=== PATIENT | male | born 1935 | race Caucasian/White ===

== ENCOUNTER → 2021-07-16 08:45 | Outpatient (CLI) | payer MEDICARE, SELFPAY ==
[2021-07-16 09:33] LABS: Basophils # 0.1 K/mm3 (0-0.2); Basophils % 0.8 % (0.1-2.0); Eosinophils # 0.4 K/mm3 (0.0-0.4); Eosinophils % 5.5 % (0.1-12.0); Hematocrit 47.5 % (42.0-52.0); Hemoglobin 15.7 g/dL (14.1-18.0); Lymphocytes # 1.9 K/mm3 (0.7-4.5); Lymphocytes % 28.6 % (10-50); Mean Corpuscular HGB Conc 33.1 g/dL (31.8-35.4); Mean Corpuscular Hemoglobin 32.7 pg (27.0-31.2); Mean Corpuscular Volume 98.9 fl (80-94); Mean Platelet Volume 7.7 fl (7.4-10.4); Monocytes # 0.4 K/mm3 (0.1-1.0); Monocytes % 5.2 % (1.7-9.3); Neutrophils # 4.1 K/mm3 (1.8-7.8); Neutrophils % 59.9 % (37.0-80.0); Platelet Count 299 K/mm3 (142-424); White Blood Count 6.8 K/mm3 (4.8-10.8)
[2021-07-16 10:06] LABS: Alanine Aminotransferase 12 U/L (12-78); Albumin/Globulin Ratio 1.7 (1.1-1.8); Alkaline Phosphatase 52 U/L (38-126); Anion Gap 9.9 mEq/L (5-15); Aspartate Amino Transferase 28 U/L (17-59); Blood Urea Nitrogen 19 mg/dl (9-20); Calcium 9.4 mg/dl (8.4-10.2); Carbon Dioxide 32 mmol/L (22.0-30.0); Chloride 105 mmol/L (98-107); Chol/HDL Ratio 2.8 (1-3.5); Cholesterol 168 mg/dl (140-200); Estimated Glomerular Filt Rate 71 ml/min (>60); GFR (African American) 86 ML/MIN (>60); Globulin 2.3 g/dL (1.3-3.2); Glucose 92 mg/dl (74-100); HDL Cholesterol 61 mg/dl (40-60); Potassium 4.9 mmoL/L (3.5-5.1); Sodium 142 mmol/L (136-145); Total Protein,Serum 6.3 g/dl (6.3-8.2); Triglycerides 58 mg/dl (30-150); VLDL Cholesterol 12 mg/dL (0-40)
[2021-07-16 10:18] LABS: Direct LDL Cholesterol 84.48 mg/dL (100-129)
[2021-07-16 10:37] LABS: Prostate Specific Ag Screen 6.7 ng/ml (0.0-4.0)
== END ==
PROVIDERS: Visit Provider Internal Medicine
DX: Z00.00 Encounter for general adult medical examination without abnormal findings (principal); Z12.5 Encounter for screening for malignant neoplasm of prostate; E78.9 Disorder of lipoprotein metabolism, unspecified
CPT/HCPCS: 36415; 80053; 80061; 85025; G0103

== ENCOUNTER → 2022-07-21 08:14 | Outpatient (CLI) | payer MEDICARE, SELFPAY ==
[2022-07-21 09:50] LABS: Basophils # 0.1 K/mm3 (0-0.2); Eosinophils # 0.3 K/mm3 (0.0-0.4); Eosinophils % 4.5 % (0.1-12.0); Hematocrit 46.2 % (42.0-52.0); Hemoglobin 14.8 g/dL (14.1-18.0); Lymphocytes # 1.4 K/mm3 (0.7-4.5); Lymphocytes % 26.1 % (10-50); Mean Corpuscular HGB Conc 32.1 g/dL (31.8-35.4); Mean Corpuscular Volume 99.7 fl (80-94); Monocytes # 0.3 K/mm3 (0.1-1.0); Monocytes % 5.8 % (1.7-9.3); Neutrophils # 3.4 K/mm3 (1.8-7.8); Neutrophils % 62.6 % (37.0-80.0); Platelet Count 282 K/mm3 (142-424); Red Blood Count 4.63 M/mm3 (4.60-6.20); White Blood Count 5.5 K/mm3 (4.8-10.8)
[2022-07-21 10:14] LABS: Chloride 104 mmol/L (98-107); Potassium 4.4 mmoL/L (3.5-5.1); Sodium 140 mmol/L (136-145)
[2022-07-21 10:16] LABS: Blood Urea Nitrogen 22 mg/dl (9-20); Estimated Glomerular Filt Rate 71 ml/min (>60); GFR (African American) 86 ML/MIN (>60)
[2022-07-21 10:17] LABS: Alanine Aminotransferase 13 U/L (12-78); Albumin Level 3.8 g/dl (3.5-5.0); Albumin/Globulin Ratio 1.7 (1.1-1.8); Alkaline Phosphatase 61 U/L (38-126); Anion Gap 11.4 mEq/L (5-15); Aspartate Amino Transferase 28 U/L (17-59); Bilirubin,Total 0.9 mg/dl (0.2-1.3); Calcium 9.4 mg/dl (8.4-10.2); Carbon Dioxide 29 mmol/L (22.0-30.0); Cholesterol 171 mg/dl (140-200); Globulin 2.3 g/dL (1.3-3.2); Glucose 89 mg/dl (74-100); Total Protein,Serum 6.1 g/dl (6.3-8.2); Triglycerides 50 mg/dl (30-150); VLDL Cholesterol 10 mg/dL (0-40)
[2022-07-21 10:18] LABS: Chol/HDL Ratio 2.9 (1-3.5); HDL Cholesterol 58 mg/dl (40-60)
[2022-07-21 10:29] LABS: Direct LDL Cholesterol 76.01 mg/dL (100-129)
== END ==
PROVIDERS: PCP Internal Medicine; Visit Provider Internal Medicine
DX: Z00.00 Encounter for general adult medical examination without abnormal findings (principal); Z85.46 Personal history of malignant neoplasm of prostate; I10 Essential (primary) hypertension; Z12.5 Encounter for screening for malignant neoplasm of prostate
CPT/HCPCS: 36415; 80053; 80061; 85025; G0103

== ENCOUNTER → 2023-07-26 09:57 | Outpatient (CLI) | payer MEDICARE, SELFPAY ==
[2023-07-26 10:28] LABS: Basophils # 0.1 K/mm3 (0-0.2); Basophils % 0.8 % (0.1-2.0); Eosinophils # 0.3 K/mm3 (0.0-0.4); Eosinophils % 5.1 % (0.1-12.0); Hematocrit 45.1 % (42.0-52.0); Hemoglobin 15.4 g/dL (14.1-18.0); Lymphocytes # 1.9 K/mm3 (0.7-4.5); Mean Corpuscular HGB Conc 34.1 g/dL (31.8-35.4); Mean Corpuscular Hemoglobin 33.5 pg (27.0-31.2); Mean Corpuscular Volume 98.2 fl (80-94); Mean Platelet Volume 7.5 fl (7.4-10.4); Monocytes # 0.4 K/mm3 (0.1-1.0); Monocytes % 5.9 % (1.7-9.3); Neutrophils # 3.8 K/mm3 (1.8-7.8); Neutrophils % 59.2 % (37.0-80.0); Platelet Count 221 K/mm3 (142-424); Red Blood Count 4.59 M/mm3 (4.60-6.20); Red Cell Distribution Width 12.9 % (11.5-17.5); White Blood Count 6.5 K/mm3 (4.8-10.8)
[2023-07-26 10:52] LABS: Alanine Aminotransferase 19 U/L (12-78); Albumin Level 3.9 g/dl (3.5-5.0); Albumin/Globulin Ratio 1.7 (1.1-1.8); Alkaline Phosphatase 52 U/L (38-126); Anion Gap 11.7 mEq/L (5-15); Aspartate Amino Transferase 31 U/L (17-59); Bilirubin,Total 0.9 mg/dl (0.2-1.3); Blood Urea Nitrogen 23 mg/dl (9-20); Calcium 9.1 mg/dl (8.4-10.2); Carbon Dioxide 27 mmol/L (22.0-30.0); Chloride 104 mmol/L (98-107); Chol/HDL Ratio 2.5 (1-3.5); Cholesterol 161 mg/dl (140-200); Estimated Glomerular Filt Rate 63 ml/min (>60); GFR (African American) 77 ML/MIN (>60); Globulin 2.3 g/dL (1.3-3.2); Glucose 105 mg/dl (74-100); HDL Cholesterol 64 mg/dl (40-60); Potassium 4.7 mmoL/L (3.5-5.1); Sodium 138 mmol/L (136-145); Total Protein,Serum 6.2 g/dl (6.3-8.2); Triglycerides 81 mg/dl (30-150); VLDL Cholesterol 16 mg/dL (0-40)
[2023-07-26 11:03] LABS: Direct LDL Cholesterol 74.95 mg/dL (100-129)
[2023-07-26 11:22] LABS: Prostate Specific Ag Screen 8.1 ng/ml (0.0-4.0); Thyroid Stimulating Hormone 1.98 uIU/mL (0.465-4.68)
== END ==
PROVIDERS: PCP Internal Medicine; Visit Provider Internal Medicine
DX: Z00.00 Encounter for general adult medical examination without abnormal findings; Z85.46 Personal history of malignant neoplasm of prostate; Z12.5 Encounter for screening for malignant neoplasm of prostate; R73.9 Hyperglycemia, unspecified; R71.8 Other abnormality of red blood cells; I10 Essential (primary) hypertension
CPT/HCPCS: 36415; 80053; 80061; 84443; 85025; G0103

== ENCOUNTER 2024-07-26 08:45 | Outpatient (CLI) | payer MEDICARE, SELFPAY ==
[2024-07-26 09:15] LABS: Basophils # 0.1 K/mm3 (0-0.2); Eosinophils # 0.3 K/mm3 (0.0-0.4); Eosinophils % 4.1 % (0.1-12.0); Hematocrit 44.2 % (42.0-52.0); Hemoglobin 15.4 g/dL (14.1-18.0); Lymphocytes # 1.9 K/mm3 (0.7-4.5); Lymphocytes % 31.4 % (10-50); Mean Corpuscular HGB Conc 34.9 g/dL (31.8-35.4); Mean Corpuscular Hemoglobin 33.1 pg (27.0-31.2); Mean Corpuscular Volume 94.7 fl (80-94); Mean Platelet Volume 7.4 fl (7.4-10.4); Monocytes # 0.4 K/mm3 (0.1-1.0); Monocytes % 6.6 % (1.7-9.3); Neutrophils # 3.5 K/mm3 (1.8-7.8); Neutrophils % 56.9 % (37.0-80.0); Platelet Count 228 K/mm3 (142-424); Red Blood Count 4.67 M/mm3 (4.60-6.20); Red Cell Distribution Width 13.1 % (11.5-17.5); White Blood Count 6.1 K/mm3 (4.8-10.8)
[2024-07-26 10:03] LABS: Alanine Aminotransferase 12 U/L (12-78); Albumin Level 3.7 g/dl (3.5-5.0); Albumin/Globulin Ratio 1.7 (1.1-1.8); Alkaline Phosphatase 52 U/L (38-126); Aspartate Amino Transferase 26 U/L (17-59); Bilirubin,Total 0.9 mg/dl (0.2-1.3); Blood Urea Nitrogen 24 mg/dl (9-20); Calcium 8.9 mg/dl (8.4-10.2); Carbon Dioxide 29 mmol/L (22.0-30.0); Chloride 108 mmol/L (98-107); Chol/HDL Ratio 2.9 (1-3.5); Cholesterol 153 mg/dl (140-200); Estimated Glomerular Filt Rate 63 ml/min (>60); GFR (African American) 77 ML/MIN (>60); Globulin 2.2 g/dL (1.3-3.2); Glucose 88 mg/dl (74-100); HDL Cholesterol 53 mg/dl (40-60); Potassium 4.1 mmoL/L (3.5-5.1); Total Protein,Serum 5.9 g/dl (6.3-8.2); Triglycerides 79 mg/dl (30-150); VLDL Cholesterol 16 mg/dL (0-40)
[2024-07-26 10:04] LABS: Anion Gap 9.1 mEq/L (5-15); Sodium 142 mmol/L (136-145)
[2024-07-26 10:16] LABS: Direct LDL Cholesterol 75.02 mg/dL (100-129)
[2024-07-26 10:21] LABS: Free T4 (Free Thyroxine) 0.93 ng/dl (0.78-2.19)
[2024-07-26 10:38] LABS: Prostate Specific Ag, Diagnost 16.7 ng/ml (0.0-4.0); Thyroid Stimulating Hormone 2.19 uIU/mL (0.465-4.68)
== END 2024-07-26 23:59 | disposition home or self-care (01) ==
LOC: LAB 08:47
PROVIDERS: PCP Internal Medicine; Visit Provider Internal Medicine
DX: C61 Malignant neoplasm of prostate (principal); I10 Essential (primary) hypertension
CPT/HCPCS: 36415; 80053; 80061; 84153; 84439; 84443; 85025

== ENCOUNTER 2025-02-26 09:51 | Outpatient (CLI) | payer MEDICARE, SELFPAY ==
--- OUTSIDE RECORDS SUMMARY | 2025-01-08 13:15 | XMS_ITS | Encounter Summary ---
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 Name Role Phone Unavailable Primary Care Provider Unavailabl e Reason for Visit * Reason Comments Injections Repeat inj Encounter Details Date Type Department Care Team (Late st Contact Info) Description 01/08/2025 1:15 PM EDT Office Visit [facility] - [address] [place] [address] Trudi Mustafa MD [address] [place] [address] Carpal tunnel syndrome on right (Primary Dx); Right hand pain Social History Tobacco Use Types Packs/Day Years Used Date Smoking Tobacco: Never Smokeless Tobacco: Never Tobacco Cessation:Counseling Given: Not Answered Alcohol Use Standard Drinks/Week Comments Never 0 (1 standard drink = 0.6 oz pur e alcohol) Sex and Gender Information Value Date Recorded Sex Assigned at Not on file Legal Sex Male 1:20 PM CDT Gender Identity Not on file Sexual Orientation Not on file documented as of this encounter Last Filed Vital Signs Vital Sign Reading Time Taken Comments Blood Pressure 153/74 01/08/2025 1:13 PM EDT Pulse 51 01/08/2025 1:13 PM EDT Temperature - - Respiratory Rate - - Oxygen Saturation - - Inhaled Oxygen Concentration - - Weight 75.8 kg (167 lb) 01/08/2025 1:08 PM EDT Height 170.2 cm (5' 7 ) 01/08/2025 1:08 PM EDT Body Mass Index 26.16 01/08/2025 1:08 PM EDT documented in this encounter Progress Notes * Trudi Mustafa MD - 01/08/2025 1:15 PM EDTAssociated Order(s): R CTI Post-Procedure Diagnose(s): Carpal tunnel syndrome on right Subjective: Edvin Valladares is a 89 y.o. male. No ref. provider found Work Comp []Yes [x]No Chief Complaint Patient presents with Injections Repeat inj Last visit 10/10/24 received R CTI He had good relief from the past inj and only has slight numbness in the tip of his fingers. 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 Date of Onset of Symptoms: [x]On-going problem Trauma: []+ [x]- Mechanism of Injury: n/a Pain Location: right hand Severity (1-10) Quality: Burning Numbness: []+ [x]- []Occasional []Constant Tingling: []+ [x]- []Occasional []Constant Night Symptoms: []+ [x]- x/wk Additional Symptoms: []None []Drainage []Neck Pain []Redness []Swelling [x]Stiffness []Bruising []Weakness []Drop Items []Other: Review of Systems []No change from previous []Change from previous [x]Reviewed ROS by Trudi Mustafa MD General: No recent fever or chills, no recent weight loss or weight gain, no insomnia HEENT: No change in vision, no glasses/contacts, no hearing loss, no tinnitus, no vertigo, no congestion/sinus issues CVS: No chest pain, no palpitations, no edema, no varicose veins Resp: No dyspnea, no wheezing, no cough, no hemoptysis GI: No dysphagia, no nausea, no vomiting, no heart burn, no constipation, no diarrhea : No dysuria, no hematuria, no nocturia, no history of chronic UTI Musculoskeletal: See HPI Derm: No rash, no abrasions, no skin discoloration, no history or MRSA Neuro: No headaches, no seizures, no stroke, no tremors, no muscle weakness, no difficulty walking,no numbness/tingling, no neuropathy Endo: No cold/heat intolerance Heme: No abnormal bruising or bleeding Psych: No depression, no anxiety, no fatigue, no mood swings Vitals: 01/08/25 1308 01/08/25 1313 BP: (!) 145/88 (!) 153/74 Pulse: 56 51 Weight: 75.8 kg (167 lb) Height: 1.702 m (5' 7 ) Past Medical History: Diagnosis Date Arthritis Past Surgical History: Procedure Laterality Date APPENDECTOMY BACK SURGERY HAND SURGERY No current outpatient medications on file. No current facility-administered medications for this visit. No Known Allergies Family History Problem Relation Name Age of Onset High blood pressure Other Diabetes Other Cancer Other Arthritis Other Hyperlipidemia Other Social History Tobacco Use Smoking status: Never Smokeless tobacco: Never Substance Use Topics Alcohol use: Never Objective: BP (!) 153/74 Pulse 51 Ht 1.702 m (5' 7 ) Wt 75.8 kg (167 lb) BMI 26.16 kg/m?? Physical Exam Physical Examination: General: [x]Awake, Alert, Oriented [x]Ambulatory [x]No Acute Distress [x]Mucus Membranes pink, moist [x]Pupils equal [x]Respiratory even, unlabored Skin: [x]Warm and dry with good cap refill [] []+ [x]- []+ [x]- []+ [x]- []+ [x]- Dystrophic changes Hypersweating Hypertrichosis Discoloration Wound/Incision: []+ []- Location: [] Healed []NSOI []C/D/I []Ecchymosis []Erythema []Swelling Peripheral Vessels: Palpable pulses: ~[x]~ Radial Artery ~[x]~ Ulnar Artery ~[x]~ Good Capillary Refill 's Test /____ R/L /____ Tinels Compression Right Left Right Left Carpel Tunnel [x]+ []- []+ []- Carpal T [x]+ []- []+ []- Pronator []+ []- []+ []- Phalen's [x]+ []- []+ []- Cubital Tunnel []+ [x]- []+ []- Pronator T []+ []- []+ []- Guyon's Canal []+ [x]- []+ []- Elbow Hyperflex []+ []- []+ []- Infraclavicular []+ []- []+ []- Infraclavicular []+ []- []+ []- Supraclavicular []+ []- []+ []- Supraclavicular []+ []- []+ []- EMG/NCS: No results found for this or any previous visit. Imaging Treatment: R CTI Date/Time: 01/08/2025 1:29 PM Performed by: Trudi Mustafa MD Authorized by: Trudi Mustafa MD Consent: Consent obtained: Verbal and written Consent given by: Patient Risks, benefits, and alternatives were discussed: yes Risks discussed: Bleeding, infection, pain, incomplete drainage, nerve damage and poor cosmetic result [place] protocol: Procedure explained and questions answered to patient or proxy's satisfaction: yes Relevant documents present and verified: yes Test results available: yes Imaging studies available: yes Site/side marked: yes Immediately prior to procedure, a time out was called: yes Patient identity confirmed: Verbally with patient Indications: Indications: Carpal Tunnel Syndrome Pre-procedure details: Preparation: Patient was prepped and draped in the usual sterile fashion Sedation: Sedation type: None Anesthesia: Anesthesia method: Topical application Procedure specific details: Right Carpal Tunnel injections We discussed conservative treatment with Kenalog injections which can take several days for effect.Transient numbness in the hand was discussed post injection which will resolve in a few hours. The hand was laid in the supine position. 1 ml of 1% Lidocaine and Kenalog 10mg were injected ulnar to the palmaris longus tendon (in the soft indentation of the volar wrist) after the skin was prepped with adequately with alcohol. A sterile bandaid was applied. Post-procedure details: Procedure completion: Tolerated well, no immediate complications Assessment: ICD-10-CM ICD-9-CM 1. Carpal tunnel syndrome on right G56.01 354.0 2. Right hand pain M79.641 729.5 Plan: Discussed treatment options for Carpal Tunnel Syndrome, including braces, injections and carpal tunnel release. The patient education brochure on carpal tunnel syndrome has been provided to the patient. continue night splints (patient has purchased OTC) B6/E Vitamins If symptoms persist without benefit from injection after 2 weeks, we will obtain emg/ncs study. We discussed our intent to continue with conservative management as long as the injections provide appropriate relief of symptoms or until surgery is elected by the patient. Patient instructions given. I have examined and questioned the above listed patient and provided or received all documentation,establishing, confirming, and revising as necessary, the findings and statements noted. . EMR/Dragon/Integration Technician disclaimer: Much of this encounter note is an electronic clinical account executive/translation of spoken language to printed text. The electronic translation of spoken language may permit erroneous, or at times, nonsensical words or phrases to be inadvertently transcribed; Although thenote is reviewed for such errors, some may still exist. documented in this encounter Plan of Treatment Upcoming Encounters Date Type Department Care Team (Late st Contact Info) Description 04/09/2025 1:00 PM EDT Office Visit [facility] - [address] [place] [id number] Trudi Mustafa MD [address] [place] [address] documented as of this encounter Procedures Procedure Name Priority Date/Time Associated Diagnosis Comments [id number]_MODEL GENERAL FORM Routine 01/08/2025 1:29 PM EDT Carpal tunnel syndrome on right documented in this encounter Results * R CTI (01/08/2025 1:29 PM EDT) Narrative Trudi Mustafa MD - 01/08/2025 1:29 PM EDT Trudi Mustafa MD 01/08/2025 1:33 PM R CTI Date/Time: 01/08/2025 1:29 PM Performed by: Trudi Mustafa MD Authorized by: Trudi Mustafa MD Consent: Consent obtained: Verbal and written Consent given by: Patient Risks, benefits, and alternatives were discussed: yes Risks discussed: Bleeding, infection, pain, incomplete drainage, nerve damage and poor cosmetic result [place] protocol: Procedure explained and questions answered to patient or proxy's satisfaction: yes Relevant documents present and verified: yes Test results available: yes Imaging studies available: yes Site/side marked: yes Immediately prior to procedure, a time out was called: yes Patient identity confirmed: Verbally with patient Indications: Indications: Carpal Tunnel Syndrome Pre-procedure details: Preparation: Patient was prepped and draped in the usual sterile fashion Sedation: Sedation type: None Anesthesia: Anesthesia method: Topical application Procedure specific details: Right Carpal Tunnel injections We discussed conservative treatment with Kenalog injections which can take several days for effect. Transient numbness in the hand was discussed post injection which will resolve in a few hours. The hand was laid in the supine position. 1 ml of 1% Lidocaine and Kenalog 10mg were injected ulnar to the palmaris longus tendon (in the soft indentation of the volar wrist) after the skin was prepped with adequately with alcohol. A sterile bandaid was applied. Post-procedure details: Procedure completion: Tolerated well, no immediate complications Trudi Mustafa MD PROCEDURE/MINOR SURGICAL ORDERABLES Final Result documented in this encounter Visit Diagnoses Diagnosis Carpal tunnel syndrome on right- Primary Carpal tunnel syndrome Right hand pain Pain in soft tissues of limb documented in this encounter Administered Medications Inactive Administered Medications - up to 3 most recent administrations Medication Order MAR Action Action Date Dose Rate Site lidocaine (XYLOCAINE) injection 1% 1 mL Once, intra-articular, On Mon01/08/25 at 1400, For 1 doseIndications:Carpal tunnel syndrome on right Given 01/08/2025 1:18 PM EDT 1 mL Other triamcinolone acetonide (KENALOG) injection 1 mg 1 mg Once, intra-articular, On Mon01/08/25 at 1400, For 1 doseIndications:Carpal tunnel syndrome on right Given 01/08/2025 1:19 PM EDT 1 mg Other documented in this encounter
--- OUTSIDE RECORDS SUMMARY | 2025-02-26 10:04 | XMS_ITS | Data Portability ---
Author Organization [place] TYRONE Dempsey [facility] Address [address] [place] [address] [address] [place] [address] Assessment Encounter Date Assessment Date Assessment LastModified by Organization Details LastModified Time 07/25/2022 07/25/2022 Patient presented to office today for their Medicare Annual Wellness Visit. Wellness visit Questionnaire was reviewed. Depression screening was negative and no followup plan is needed. Emphasized preventive health measures including fall prevention to help reduce health risks and promote healthy living. [email or web address] Not available 07/18/2022 12:03:38 07/27/2023 07/27/2023 Patient presented to office today for their Medicare Annual Wellness Visit. Wellness visit Questionnaire was reviewed. Depression screening was negative and no followup plan is needed. Emphasized preventive health measures including fall prevention to help reduce health risks and promote healthy living. [email or web address] Not available 07/26/2023 07:08:38 12/13/2023 12/13/2023 [facility]/L CTS. [email or web address] Not available 21:02:22 09/03/2024 09/03/2024 Patient presented to office today for their Medicare Annual Wellness Visit. Wellness visit Questionnaire was reviewed. Depression screening was negative and no followup plan is needed. Emphasized preventive health measures including fall prevention to help reduce health risks and promote healthy living. [email or web address] Not available 09/02/2024 12:12:56 Plan of Treatment Reminders Order Date Submit Date Provider Last Modified By Organization Details Last Modified Time Details Appointments None recorded. Lab PSA, total, serum or plasma 2023 025 [facility], [address] [place] [address], [id number], 06/01/202 5 03:10:12 CBC w/ auto diff 2023 025 [facility], [address] [place] [address], [address], 5 03:10:11 CMP, serum or plasma 2023 025 [facility], [address] [place] [address], [address], 5 03:10:12 lipid panel, serum 2023 025 [facility], [address] [place] [address], [address], 5 03:10:12 TSH, serum, reflex free T4 2023 025 [facility], [address] [place] [address], [address], 5 03:10:12 PSA, total, serum or plasma 2022 024 [email or web address] [facility], [address] [place] [address], [address], 4 08:10:27 CMP, serum or plasma [email or web address] [facility], [address] [place] [address], [address], 4 08:10:27 CBC w/ auto diff 2022 024 [facility], [address] [place] [address], [id number], 4 10:17:24 lipid panel, serum 2022 024 [email or web address] [facility], [address] [place] [address], [address], 4 08:10:27 TSH, serum, reflex free T4 2022 024 [email or web address] [facility], [address] [place] [address], [address], 4 08:10:27 TSH, serum or plasma 2021 023 [facility], [address] [place] [address], [address], 3 14:04:34 CBC w/ auto diff 2021 023 [facility], [address] [place] [address], [address], 3 13:21:21 CMP, serum or plasma 2021 023 [facility], [address] [place] [address], [address], 3 14:04:34 lipid panel, serum 2021 023 [facility], [address] [place] [address], [address], 3 14:04:34 PSA, serum or plasma 2021 023 [facility], [address] [place] [address], [address], 3 14:04:34 Referral radiation oncologist referral 2023 024 [email or web address] Dhruv Vaca MD, [address] , [place], [address], 4 11:55:30 radiation oncologist referral 2022 023 [email or web address] 3 Dhruv Vaca MD, [address] , [place], [address], 3 10:15:45 hand surgeon referral 2022 023 [email or web address] 3 Sabino Wade MD, [address] [place], [address], 3 10:06:35 Procedures nerve conduction study/EMG (PROC) 2022 023 [email or web address] Ladi Gonzalez MD, [address] [place], [address], 3 10:19:02 Surgeries None recorded. Imaging None recorded. Medication Orders None recorded. Patient TargetsNo targets recorded. Patient Instructions Encounter Date Encounter Id Patient Instructions Last Modified By Organization Details Last Modified Time 07/25/2022 [id number] weight managemen t education [email or web address] Not available 07/25/2022 11:20:05 advance care planning: care instructions [email or web address] Not available 07/25/2022 11:20:05 Preventive Katherine ch Breast Cancer screening: Date: Excluded Colorectal Cancer screening: Date: Excluded Colonoscopy within [address] colonography within 5 yrs Flex Sig within 5 yrs Cologuard within 2 yrs Fecal Occult within 1 yr Prostate Cancer screening: Date: 07/21/2022 Osteoporosis mgmt in women who had a fracture: Date: Excluded Bone density within six months after a fracture Diabetes : Not Indicated Diabetic nephropathy micro or macro albumin test during calendar year Is patient on ELA med during calendar year? Is patient on ARB med during calendar year? Diabetic eye exam Date: Diabetic foot exam Date: Nephrology visit during calendar year Date: Renal transplant: Labs reviewed scripts reviewed risks/benefits reviewed high risk meds reviewed continued follow up with radiation oncology he declines prevnar 20 he declines colonoscopy rtc 12 months with labs MWV and prn [email or web address] Not available 07/25/2022 11:17:50 07/27/2023 [id number] advance care planning: care instructions [email or web address] Not available 07/27/2023 09:58:03 Preventive Katherine ch Breast Cancer screening: Date: Excluded Colorectal Cancer screening: Date: Excluded Colonoscopy within [address] colonography within 5 yrs Flex Sig within 5 yrs Cologuard within 2 yrs Fecal Occult within 1 yr Prostate Cancer screening: Date: Excluded Osteoporosis mgmt in women who had a fracture: Date: Excluded Bone density within six months after a fracture Diabetes : Not Indicated Diabetic nephropathy micro or macro albumin test during calendar year Is patient on ELA med during calendar year? Is patient on ARB med during calendar year? Diabetic eye exam Date: Diabetic foot exam Date: Nephrology visit during calendar year Date: Renal transplant: scripts reviewed risks/benefits reviewed high risk meds reviewed labs when fasting follow up with radiation oncology continue to monitor labs prevnar 20 -- declined. His children told him not take it. ncv/emg hand appointment rtc 12 months with labs MWV and prn [email or web address] Not available 07/27/2023 09:56:16 09/03/2024 [id number] advance care planning: care instructions [email or web address] Not available 09/03/2024 10:28:45 labs reviewed scripts reviewed risks/benefits reviewed high risk meds reviewed follow up with radiation oncology he declines vaccinations he declines colon cancer screening I told him to get shingrix rtc 6 months with labs MWV and prn [email or web address] Not available 09/03/2024 10:23:15 Reason for Referral Referring Physician: Dannie Whitehead, Internal Medicine, Encounter Date: 07/27/2023 Hand Surgeon Referral for Bi lateral carpal tunnel syndrome Referring Physician: Dannie Whitehead, Internal Medicine, Encounter Date: 07/27/2023 Referring Physician: Dannie Whitehead, Internal Medicine, Encounter Date: 09/03/2024 Results Created Date Observation Date Name Description Value Unit Range Abnormal Flag Note LastModifiedBy Organization Detail LastModifiedTime 12/11/19 24 12/08/2023 nerve condu ction study /EMG (PROC ) No observ ation record ed. [email or web address] Ladi Gonzalez MD [address] [place], [address], 12/12/2023 09:58:54 Result Notes None recorded. Problems Name Problem SNOMED Code Status Onset Date Resolution Date Notes Provider Name and Address Organization Details Recorded Time Essential hypertensi on 67854885 Active 2017 [facility] 9 13:05:17 Malignant neoplasm of prostate 169972371 Active 2015 radiation [facility] 9 13:05:17 Impotence of organic origin Active 2015 Provider: Dannie Whitehead;Richardson tus: Active Arabella Gutierrez [facility] 13:05:17 Problem Notes None recorded. Procedures Surgical History Date Name Laterality Status Provider Name and Address Organization Details Recorded Time 12/08/19 24 Electromyography (EMG) with Nerve Conduction Study (NCV) completed Cari Van (Nicky) [facility] 12/08/2023 14:24:16 07/27/20 23 PAF Exam completed Ashlyn [facility] 07/17/2023 11:20:38 07/25/20 22 PAF Exam completed [facility] 07/18/2022 12:03:37 Appendectomy completed DANNIE WHITEHEAD MD [address] [place] [address], [address] [place] [address], [facility] 10/05/2016 09:47:08 Unlisted px urinary system completed DANNIE WHITEHEAD MD [address] [place] [address], [address] [place] [address] 10/05/2016 09:47:24 Carpal tunnel surgery completed DANNIE WHITEHEAD MD [address] [place] [address], [address] [place] [address], [facility] 10/05/2016 09:47:35 Back Surgery completed DANNIE WHITEHEAD MD [address] [place] [address], [address] [place] [address], [facility] 10/05/2016 09:47:55 Imaging Results None recorded. Procedure Notes None recorded. Medical Equipment None Reported. Allergies No known drug allergies Medications Name Sig Start Date Stop Date Status Note LastModified by Organization Details LastModified Time promethaz ine-DM 6.25 mg-15 mg/5 mL oral syrup 5ml po tid prn cough 01/26 completed Not Available Not Available Not Available doxycycli ne hyclate 100 mg capsule Take 1 capsule twice a day by oral route for 7 days. 01/26 completed Not Available Not Available Not Available Medrol (Rashard) 4 mg tablets in a dose pack use as directed 01/26 completed Not Available Not Available Not Available aspirin 81 mg tablet Daily 07/23 completed Duration : 30 days;Pk quency: daily;Me dication Descript ion: aspirin; Dosage:1 ; Route:or al; refills: 0; Quantity :30 tablet Not Available Not Available Not Available Vitamin D2 1,250 mcg (50,000 unit) capsule 01/26 completed Medicati on Descript ion: ergocalc iferol; Route:or al; refills: 0 Not Available Not Available Not Available metoprolo l tartrate 25 mg tablet Take 1 tablet twice a day by oral route for 30 days. 02/01 completed Not Available Not Available Not Available sildenafi l (pulmonar y hypertens ion) 20 mg tablet 1-3 daily as needed 11/16 completed Not Available Not Available Not Available Vitamin D3 07/27 completed Not Available Not Available Not Available cannabidi ol (CBD) extract 07/23 completed Not Available Not Available Not Available Vitals Date Recorded Body height Body mass index (BMI) Body weight Provider Name and Address Organization Details Last Updated DateTime 12/13/2023 170.18 cm 26.9 kg/m2 94036.89 g Breanna Carrillo [facility] 12/13/2023 12:29:24 Date Recorded Respiratory rate Heart rate Systolic blood pressure Diastolic blood pressure Provider Name and Address Organization Details Last Updated DateTime 07/25/2022 12 /min 64 /min 122 mm[Hg] 60 mm[Hg] DANNIE WHITEHEAD MD [address] [place] [address], [address] [facility] 07/25/2022 11:07:05 Date Recorded Body height Body mass index (BMI) Body weight Provider Name and Address Organization Details Last Updated DateTime 07/25/2022 170.18 cm 27 kg/m2 41036.59 g Arlyn Serra [facility] 07/25/2022 10:45:49 Date Recorded Body height Body mass index (BMI) Respiratory rate Heart rate Systolic blood pressure Diastolic blood pressure Provider Name and Address Organization Details Last Updated DateTime 170.18 cm 27 kg/m2 12 /min 68 /min 122 mm[Hg] 60 mm[Hg] DANNIE WHITEHEAD MD [address] [place] [address] [place], [address] [place] [address] 3 09:40:06 Date Recorded Body weight Provider Name an d Address Organization Details Last Updated DateTime 07/27/2023 90937.29 pacheco Serra [facility] 07/27/2023 09:36:15 Date Recorded Body height Respiratory rate Heart rate Systolic blood pressure Diastolic blood pressure Provider Name and Address Organization Details Last Updated DateTime 09/03/2024 170.18 cm 12 /min 64 /min 130 mm[Hg] 65 mm[Hg] DANNIE WHITEHEAD MD [address] [place], [address] [place] [address] 4 10:20:34 Date Recorded Body mass index (BMI) Body weight Provider Name and Address Organization Details Last Updated DateTime 09/03/2024 27.2 kg/m2 00686.[address] [facility] 09/03/2024 10:16:35 Social History Question Answer Notes LastModified by Dahu Details LastModified Time Tobacco Smoking Status Former Smoker 1979 DANNIE WHITEHEAD MD [address] [place], [address], [facility] 01/26/2017 11:35:41 How Much Tobacco Do You Chew? None Information not available 02/05/2019 Rate The Severity Of Your Symptoms: (0-10 With 0=none And 10=worst Possible) 5 [email or web address] Information not available 10/30/2018 What Was The Date Of Your Most Recent Tobacco Screening? 09/03/2024 Information not available 09/03/2024 What Is Your Relationship Status? Single [email or web address] Information not available 11/16/2021 Has Tobacco Cessation Counseling Been Provided? No [email or web address] Information not available 11/16/2021 Have You Recently Traveled Abroad? No [email or web address] Information not available 11/16/2021 Sex: Unknown Functional Status Question Answer Note LastModified by Organizat ion Details LastModified Time Do you use any illicit or recreational drugs? No [email or web address] Information not available 11/16/2021 Do you or have you ever used any other forms of tobacco or nicotine? No [email or web address] Information not available 11/16/2021 What is your level of alcohol consumption? None Information not available 10/05/2016 Do you or have you ever used e-cigarettes or vape? Never used electronic cigarettes Information not available 07/23/2020 Mental Status None recorded. Family History Relationship Description Onset Age of this Age Resolved Age Notes LastModified by Organization Details LastModified Time Brother Malignant neoplasm of lung [email or web address] Not available 2016 11:35:33 Medical History Condition Response Cancer Prostate Y Cancer Y Arthritis Y Hypertension Y Immunizations Vaccine Type Date Status Note Provider Name and Address Organization Details Recorded Time influenza, unspecified formulation 017 completed [facility] 06/18/2019 13:05:17 influenza, unspecified formulation 024 completed DANNIE WHITEHEAD MD [address] [place] [address], [address], [facility] 09/03/2024 10:21:03 influenza, unspecified formulation 018 completed Not Available [facility] 07/27/2023 09:33:38 Hep A, adult 018 completed Not Available [facility] 07/27/2023 09:33:39 influenza, unspecified formulation 016 completed [facility] 06/18/2019 13:05:17 Influenza, high-dose, trivalent, PF 019 completed Not Available [facility] 07/27/2023 09:33:39 Influenza, split virus, quadrivalent, preservative 020 completed Not Available [facility] 07/27/2023 09:33:38 Pneumococcal conjugate PCV20, polysaccharide ISN251 conjugate, adjuvant, PF 023 cancelled patient objection DANNIE WHITEHEAD MD [address] [place] [address], [address], [facility] 07/27/2023 09:58:03 Influenza, split virus, quadrivalent, preservative 021 completed Not Available [facility] 07/27/2023 09:33:38 COVID-19, mRNA, LNP-S, PF, 30 mcg/0.3 mL dose 021 completed Not Available [facility] 07/27/2023 09:33:38 COVID-19, mRNA, LNP-S, PF, 30 mcg/0.3 mL dose 021 completed Not Available [facility] 07/27/2023 09:33:38 Influenza, split virus, quadrivalent, preservative 022 completed Not Available [facility] 07/27/2023 09:33:38 Pneumococcal conjugate PCV 13 017 completed Arabella Gutierrez [facility] 06/18/2019 13:05:17 pneumococcal polysaccharide PPV23 018 completed Not Available [facility] 09/28/2019 02:50:03 Influenza, high-dose, trivalent, PF 014 completed Arlyn Serra [facility] 07/25/2023 10:22:40 Influenza, high-dose, trivalent, PF 015 completed Arlyn Serra [facility] 07/25/2023 10:22:40 Influenza, split virus, trivalent, preservative 016 completed Arlyn Serra [facility] 07/25/2023 10:22:40 influenza, unspecified formulation 023 completed DANNIE WHITEHEAD MD [address] [place] [address], [address], [facility] 07/27/2023 09:40:40 Past Encounters Encounter ID Performer Location Encounter Start Date Encounter Closed Date Diagnosis/Indication Diagnosis SNOMED-CT Code Diagnosis ICD10 Code Diagnosis Note [id number] DANNIE WHITEHEAD MD INTERNAL MEDICINE [facility] [address] [place] [address] 10/05/2016 11:04:08 10/05/2016 12:01:56 Acute bronchitis 10460856 J20.9 [id number] CIRILO FINK MD [facility] [address] [place] [address] 12/06/2016 10:45:20 12/06/2016 12:29:39 Inflammation of joint of shoulder region 668983596 M19.011 rotator cuff tearbices rupture chronic Shoulder joint pain 2679 91296 M25.161 [id number] DANNIE WHITEHEAD MD INTERNAL MEDICINE [facility] [address] [place] [address] 01/26/2017 11:02:59 01/26/2017 11:56:57 Adult health examination 050005316 Z00.00 Fatigue 70709433 R53.83 Screening for malignant neoplasm of prostate 429632324 Z12.5 Hyperlipidemia 94585807 E78.5 Vitamin D deficiency 347 55912 E55.9 Malignant neoplasm of prostate 936672957 C61 [id number] SUHA PARR [facility] [address] [place] [address] 02/07/2017 09:57:57 02/07/2017 16:08:50 History of malignant neoplasm of prostate 674046678 Z85.46 Prostate s pecific antigen above reference range 419269014 R97.20 [id number] DANNIE WHITEHEAD MD INTERNAL [facility] CL[facility] [address] [place] [address] 04/26/2017 09:23:51 04/26/2017 10:40:41 Essential hypertension 24204711 I10 Long-term current use of anticoagulant 068236185 Z79.01 [id number] DANNIE WHITEHEAD MD INTERNAL [facility] CL[facility]ED [address] [place] [address] 02/01/2018 10:57:41 02/01/2018 11:39:48 Adult health examination 444634047 Z00.00 Essential hypertension 39545171 I10 Dyslipidemia 369350551 E 78.5 Screening for malignant neoplasm of prostate 946922624 Z12.5 Active or passive immunization 316492983 Z23 [id number] CIRILO FINK MD [facility] [address] [place] [address] 10/30/2018 13:54:14 10/30/2018 15:03:13 Pain of left shoulder joint 0786393224 [id number] M25.448 [id number] DANNIE WHITEHEAD MD INTERNAL MEDICINE [facility] [address] [place] [address] 02/05/2019 10:48:32 02/05/2019 11:33:11 Adult health examination 581341210 Z00.00 Fatigue 30975976 R53.83 Dyslipidemia 097823451 E 78.5 Malignant neoplasm of prostate 707282430 C61 [id number] DANNIE WHITEHEAD MD INTERNAL MEDICINE [facility] [address] [place] [address] 07/23/2020 12:36:41 07/23/2020 13:42:30 Adult health examination 863848831 Z00.00 Fatigue 92198321 R53.83 Dyslipidemia 133388298 E 78.5 Malignant neoplasm of prostate 525194773 C61 [id number] DANNIE WHITEHEAD [place] [address] 07/23/2021 10:24:11 07/23/2021 10:57:00 Adult health examination 683690561 Z00.00 History of malignant neoplasm of prostate 350039717 Z85.46 Primary er ectile dysfunction 889429684 N52.9 [id number] MD DANO [facility] [address],[place] [address] 11/16/2021 13:20:09 11/16/2021 14:17:16 Primary erectile dysfunction 728745556 N52.9 Plan as above and he will follow-up in 4-6 weeks History of malignant neoplasm of prostate 896828097 Z85.46 We will consider PSA at next follow-up [id number] MD DANO [facility] [address] [place] [address] 0 12/15/2021 12:46:02 12/15/2021 13:15:16 History of malignant neoplasm of prostate 814835405 Z85.46 We will consider PSA at next follow-up Erectile d ysfunction following prostate brachytherapy 3072669015 09120 N52.36 as above [id number] DANNIE WHITEHEAD [place] [address] 07/25/2022 10:39:23 07/25/2022 11:43:06 Adult health examination 955176807 Z00.00 History of malignant neoplasm of prostate 294664551 Z85.46 Overweight 955816308 E66 .3 [id number] DANNIE WHITEHEAD MD INTERNAL MEDICINE [facility] [address] [place] [address] 07/27/2023 09:31:33 08/07/2023 12:52:15 Adult health examination 638040450 Z00.00 Malignant neoplasm of prostate 450391128 C61 stable Administra tion of pneumococcal vaccine 75400881 Z23 Bilateral carpal tunnel syndrome 6055132279 2221890 G56.03 [id number] LADI GONZALEZ MD NEUROLOGY [facility] [address] [place], [place] [address] 12/08/2023 12:30:33 12/11/2023 08:57:12 Bilateral carpal tunnel syndrome 8799097713 1853030 G56.03 Paresthesi a of bilateral hands 935632467 R20.2 [id number] SABINO WADE MD [facility]OPEDI [facility] [address] [place] [address] 12/13/2023 12:10:50 12/13/2023 12:49:30 Bilateral carpal tunnel syndrome 9547759787 0538811 G56.03 Recommend right revision carpal tunnel release with hypothenar fat pad flap. He wants to wait until the fall. He knows the risk and benefits including worsening of his symptoms in the interim. He can call to schedule anytime. [id number] DANNIE WHITEHEAD MD INTERNAL MEDICINE [facility] [address] [place] [address] 09/03/2024 10:12:01 09/09/2024 10:52:46 Adult health examination 338471053 Z00.00 Malignant neoplasm of prostate 176573255 C61 stablebioc hemical recurrence radiation oncologyco ntinue to monitor Health Concerns Section Related Observation LastModified by Organization Detai ls LastModified Time None Recorded Concern Status LastModified by Organization Details LastModified Time None Recorded Advance Directives Directive None Recorded Payers Insurance Date Sequence Insurance Name Policy Number Policy Marte Covered Member ID Marte Member ID Guarantor Name 09/03/2024 1 [employer] (MEDICARE REPLACEMENT/A DVANTAGE - PPO) Edvin Valladares [id number] Edvin Valladares 02/09/2025 1 [employer] - GOLD PLUS (MEDICARE REPLACEMENT/A DVANTAGE - HMO) Edvin Valladares [id number] Edvin Valladares Notes Date Note Type Note Provider Name and Address Organization Details Recorded Time 07/25/2022 text/html Medicare wellnes s visit DANNIE WHITEHEAD MD [address] [place] [address], [address], [facility] 07/25/2022 11:20:47 07/27/2023 text/html Medicare wellnes s visit He complains of paresthesias bilateral hands -- index and middle fingers DANNIE WHITEHEAD MD [address] [place] [address], [address] 07/27/2023 10:02:16 12/13/2023 text/html [facility] d [facility]: Dr. Dannie Whitehead Hand dominance: RightLocation: Bilateral Hand R>L Pain level: 0 /10 Duration:6+ months Recent Surgery: NoProcedure:Date of surgery:Surgeon(If Known): In office procedure? No Previous upper extremity surgery? YesProcedure: b/l ctrApproximate date of surgery: 20 years agoSurgeon (if known):Have you or an immediate family member ever seen our hand surgeons before? No Currently employed?: Retired Patient arrived in: n/a [employer] Strength: right: left: New: Mr. Valladares is here for evaluation of tara hand n/t. EMG in chart. He says he had ctr on b/l hands many years ago but can not remember exactly when. SABINO WADE MD [address] [place] [address], [id number], [facility] 12/13/2023 12:49:38 09/03/2024 text/html Medicare wellnes s visitHe has a history of prostate cancer treated with radiation. His PSA has risen to 16.7. DANNIE WHITEHEAD MD [address] [place] [address], [phone] 09/03/2024 10:34:18
--- OUTSIDE RECORDS SUMMARY | 2025-02-26 10:04 | XMS_ITS | Referral Summary ---
Author Organization [employer] Address [address] [place] [id number] Care Team Providers Care Household Manager Name Role Phone Unavailable Primary Care Provider Unavailabl e Encounters Date Type Department Care Team Description 01/08/2025 1:15 PM EDT Office Visit [facility] Orthoped[facility] [address] [place] [address] Trudi Mustafa MD Carpal tunnel syndrome on right (Primary Dx); Right hand pain from Last 3 Months Allergies No known active allergies Medications No known medications Active Problems No known active problems Social History Tobacco Use Types Packs/Day Years [...] on file Sexual Orientation Not on file Last Filed Vital Signs Vital Sign Reading [...] Mass Index 26.16 01/08/2025 1:08 PM EDT Plan of Treatment Upcoming Encounters Date Type Department Care Team (Late st Contact Info) Description 04/09/2025 1:00 PM EDT Office Visit [facility] Orthoped[facility] [address] [place] [address] Trudi Mustafa MD [address] [place] [address] Procedures Procedure Name Priority Date/Time Associated Diagnosis Comments FS_SJH_MODEL GENERAL FORM Routine 01/08/2025 1:29 PM EDT Carpal tunnel syndrome on right from Last 3 Months Results * R CTI (01/08/2025 1:29 PM [...] drainage, nerve damage and poor cosmetic result Woden protocol: Procedure explained and questions answered to [...] Mustafa MD PROCEDURE/MINOR SURGICAL ORDERABLES Final Result from Last 3 Months Insurance [employer] MEDICARE HMO
--- OUTSIDE RECORDS SUMMARY | 2025-02-26 10:04 | XMS_ITS | Clinical Summary ---
Author Organization [employer] Address [address] [place] [address] Care Team Providers Care Mental Tester Name Role Phone Unavailable Primary Care Provider Unavailabl e Allergies No known active allergies Medications No known medications Active Problems No known active problems Encounters Date Type Department Care Team Description 01/08/2025 1:15 PM EDT Office Visit [facility] Orthopedics [facility] [address] [place] [address] Trudi Mustafa MD Carpal tunnel syndrome on right (Primary Dx); Right hand pain from Last 3 Months Family History Medical History Relation Name Comments Arthritis Other Cancer Other Diabetes Other High blood pressure Other Hyperlipidemia Other Relation Name Status Comments Other Social History Tobacco Use Types Packs/Day Years [...] Description 04/09/2025 1:00 PM EDT Office Visit [facility] [address] [place] [address] Trudi Mustafa MD [address] [place] [address] Health Maintenance Due Date Last Done Comments Depression Screening (12+) 1947 DTAP/TDAP/TD VACCINES (1 - Tdap) 01/14/1956 Shingles Vaccine (Zoster) (1 of 2) 1987 Respiratory Syncytial Virus (RSV) Adult or (1 - 1-dose 75+ series) 01/14/2012 COVID-19 VACCINE ( season) 2024 06/14/2022, 2021, 12/23/2020 Falls Risk Screening 09/11/2024 Medicare IPPE (Welcome to Me childs) [id number] 09/11/2024 Influenza Vaccine (Season Ended) 2025 06/22/2023, 06/14/2022, 06/16/2021 Tobacco Cessation Counseling and Screening (12+) 01/08/2026 01/08/2025 Pneumococcal 50+ years Completed 02/01/2018, 2016 Procedures Procedure Name Priority Date/Time Associated Diagnosis Comments FS_SJH_MODEL GENERAL FORM Routine 01/08/2025 1:29 PM EDT Carpal tunnel syndrome on right from Last 3 Months Results * R CTI (01/08/2025 1:29 PM EDT) Trudi Tolliver MD - 01/08/2025 1:29 PM EDT Trudi Mustafa MD 01/08/2025 1:33 PM R CTI Date/Time: 01/08/2025 1:29 PM Performed by: Trudi Mustafa MD Authorized by: Trudi Mustafa MD Consent: Consent obtained: Verbal and written Consent given by: Patient Risks, benefits, and alternatives were discussed: yes Risks discussed: Bleeding, infection, pain, incomplete drainage, nerve damage and poor cosmetic result Gilbert protocol: Procedure explained and questions answered to [...]
[2025-02-26 11:21] LABS: Prostate Specific Ag, Diagnost 17.6 ng/ml (0.0-4.0)
== END 2025-02-26 23:59 | disposition home or self-care (01) ==
PROVIDERS: Radiology Radiation Oncology; PCP Internal Medicine
DX: C61 Malignant neoplasm of prostate (principal)
CPT/HCPCS: 36415; 84153

== ENCOUNTER 2025-09-02 12:48 | Outpatient (CLI) | payer MEDICARE, SELFPAY ==
--- OUTSIDE RECORDS SUMMARY | 2025-09-02 12:54 | XMS_ITS | Clinical Summary ---
Author Organization [facility] Address [address] [place] [address] Care Team Providers Care Bisque Grader Name Role Phone Dannie Dover MD Primary Care Provider [phone] Allergies No known active allergies Medications No known medications Active Problems Problem Noted Date Diagnosed Date Prostate cancer 06/28/2018 Cancer Staging:Clinical stage from 07/26/2006:Stage IIB(T2c, N0, M0, PSA: Less than 10, [place] 7) - Signed by Dhruv Vaca MD on 08/21/2018 Back pain 05/12/2017 S/P discectomy 05/12/2017 HTN (hypertension) 05/12/2017 Immunizations Immunization Administration Dates Next Due Influenza, Unspecified 06/14/2018,06/29/2017,07/2016 Pneumococcal Polysaccharide (PPSV23) 02/01/2018 Social History Tobacco Use Types Packs/Day Years Used Date Smoking Tobacco: Former Cigars Smokeless Tobacco: Never Comments:1980 Alcohol Use Standard Drinks/Week Comments No 0 (1 standard drink = 0.6 oz pur e alcohol) PHQ-2 Answer Date Recorded Patient Health Questionnaire-2 Score 0 10/02/2024 Sex and Gender Information Value Date Recorded Sex Assigned at Not on file Legal Sex Male 10:15 AM EDT Gender Identity Not on file Sexual Orientation Not on file Last Filed Vital Signs Vital Sign Reading Time Taken Comments Blood Pressure 158/76 03/04/2025 12:48 PM EDT Pulse 64 03/04/2025 12:48 PM EDT Temperature 36.3 C (97.3 F) 03/04/2025 12:48 PM EDT Respiratory Rate 20 03/04/2025 12:48 PM EDT Oxygen Saturation 99% 03/04/2025 12:48 PM EDT Inhaled Oxygen Concentration - - Weight 76.4 kg (168 lb 8 oz) 03/04/2025 12:48 PM EDT Height 170.2 cm (5' 7 ) 05/12/2017 7:03 AM EDT Body Mass Index 26.39 05/12/2017 7:03 AM EDT Plan of Treatment Upcoming Encounters Date Type Department Care Team (Late st Contact Info) Description 09/19/2025 2:00 PM EST Office Visit [facility] [address] [place] [address] Dhruv Vaca MD [address] [place] [address] Health Maintenance Due Date Last Done Comments TDAP/TD VACCINES (1 - Tdap) 01/14/1954 ZOSTER VACCINE (1 of 2) 1987 RSV Vaccine - Adults (1 - 1- dose 75+ series) 01/14/2012 ANNUAL WELLNESS VISIT 05/08/2017 INFLUENZA VACCINE 04/11/2025 06/25/2024, , 06/25/2023, Additional history exists COVID-19 Vaccine (2024-2 6 season) 2025 06/14/2022, 2021, 12/23/2020 Pneumococcal Vaccine 50+ Completed 02/01/2018, 02/10 Medical Devices Implanted Type Area Vp Packaging Device Identifier Shelf Expiration Date Model / Serial / Lot Allogrft Bone Vivigen Celluar Matrx Formable 5cc - [id number] Implanted:Qty : 1 on 05/12/2017 by Liam Combs MD at [facility] Implant N/A: Spine Lumbar [facility] 10/28/2017 [id number] / / NA Spacr [place] [id number] - [id number] Implanted:Qty : 1 on 05/12/2017 by Liam Combs MD at [facility] Implant N/A: Spine Lumbar [employer] [id number] / / NA Scrw Giovanni Viper Pls5.5 Ti Fix 6x50mm - [id number] Implanted:Qty : 4 on 05/12/2017 by Liam Combs MD at [facility] Implant N/A: Spine Lumbar DE[employer] SPINE [id number] / / NA Scrw Viper [address] - [id number] Implanted:Qty : 4 on 05/12/2017 by Liam Combs MD at [facility] Implant N/A: Spine Lumbar DEPUY SPINE [id number] / / NA Mt Expedium Prebnt Ti 5.5x45mm - [id number] Implanted:Qty : 2 on 05/12/2017 by Liam Combs MD at [facility] Implant N/A: Spine Lumbar DEPUY SPINE [id number] / / NA Insurance [facility] MEDICARE ADVANTAGE PPO Advance Directives * Full Code (Latest Code Status on File) Date Activated Date Inactivated Comments 05/12/2017 12:58 PM 05/14/2017 5:16 PM Care Teams Bisque Grader Relationship Specialty Start Date End Date Dannie Dover MD [address] [place] [id number] PCP - General Internal Medicine 05/08/17
--- OUTSIDE RECORDS SUMMARY | 2025-09-02 12:54 | XMS_ITS | Referral Summary ---
Author Organization [employer] ([place], [place], [place], [place], [place]) Address [address] [place] [address] Care Team Providers Care Accessibility Lift Technician Name Role Phone Trudi Musatfa MD Unavailable [phone] Allergies No known active allergies Medications No [...] Sign Reading Time Taken Comments Blood Pressure 133/76 04/09/2025 1:08 PM EDT Pulse 74 04/09/2025 1:08 PM EDT Temperature - - Respiratory Rate - - Oxygen Saturation - - Inhaled Oxygen Concentration - - Weight 75.8 kg (167 lb) 04/09/2025 1:08 PM EDT Height 170.2 cm (5' 7 ) 04/09/2025 1:08 PM EDT Body Mass Index 26.16 04/09/2025 1:08 PM EDT Plan of Treatment Not on file Insurance [employer] MEDICARE HMO Care Teams Accessibility Lift Technician Relationship Specialty Start Date End Date Trudi Mustafa MD [address] [place], [place] [id number] Consulting Physician Orthopedic Surgery - Hand 04/08/25
--- OUTSIDE RECORDS SUMMARY | 2025-09-02 12:54 | XMS_ITS | Clinical Summary ---
Author Organization [employer] ([place], [place], [place], [place], [place]) Address [address] [place] [address] Care Team Providers Care Client Server Programmer Name Role Phone Trudi Mustafa MD Unavailable [phone] Allergies No known active allergies Medications No known medications Active Problems No known active problems Family History Medical History Relation Name Comments [...] 04/09/2025 1:08 PM EDT Plan of Treatment Health Maintenance Due Date Last Done Comments Depression Screening (12+) 1947 DTAP/TDAP/TD VACCINES (1 - Tdap) 01/14/1956 Shingles Vaccine (Zoster) (1 of 2) 1987 Respiratory Syncytial Virus (RSV) Adult or (1 - 1-dose 75+ series) 01/14/2012 Falls Risk Screening 09/11/2024 Medicare IPPE (Welcome to Me naz) [id number] 09/11/2024 COVID-19 VACCINE ( season) 2025 06/14/2022, 2021, 12/23/2020 Influenza Vaccine (#1) 2025 3, 06/14/2022, 06/16/2021 Tobacco Cessation Counseling and Screening (12+) 04/09/2026 04/09/2025 Pneumococcal 50+ years Completed 02/01/2018, 2016 Insurance [employer] MEDICARE HMO Care Teams Client Server Programmer Relationship Specialty Start Date End Date Trudi Mustafa MD [address] [facility] [address] [place] [address] Consulting Physician Orthopedic Surgery - Hand 04/08/25
[2025-09-02 13:39] LABS: Hematocrit 41.9 % (42.0-52.0); Hemoglobin 14.6 g/dL (14.1-18.0); Immature Granulocytes % 0.3 %; Mean Corpuscular HGB Conc 34.8 g/dL (31.8-35.4); Mean Corpuscular Hemoglobin 33.3 pg (27.0-31.2); Mean Corpuscular Volume 95.4 fl (80-94); Nucleated Red Blood Cells % 0 %; Platelet Count 215 K/mm3 (142-424); Red Blood Count 4.39 M/mm3 (4.60-6.20); Red Cell Distribution Width-SD 42.4 fL; White Blood Count 8.0 K/mm3 (4.8-10.8)
[2025-09-02 14:00] LABS: Albumin Level 4.2 g/dl (3.5-5.0); Chloride 104 mmol/L (98-107); Potassium 4.7 mmoL/L (3.5-5.1); Sodium 138 mmol/L (136-145)
[2025-09-02 14:03] LABS: Alanine Aminotransferase 11 U/L (12-78); Albumin/Globulin Ratio 1.8 (1.1-1.8); Alkaline Phosphatase 57 U/L (38-126); Anion Gap 9.7 mEq/L (5-15); Aspartate Amino Transferase 26 U/L (17-59); Bilirubin,Total 0.8 mg/dl (0.2-1.3); Blood Urea Nitrogen 26 mg/dl (9-20); Calcium 9.9 mg/dl (8.4-10.2); Carbon Dioxide 29 mmol/L (22.0-30.0); Cholesterol 150 mg/dl (140-200); Creatinine,Serum 1.30 mg/dl (0.66-1.25); Estimated Glomerular Filt Rate 52 ml/min (>60); GFR (African American) 63 ML/MIN (>60); Globulin 2.4 g/dL (1.3-3.2); Glucose 83 mg/dl (74-100); Total Protein,Serum 6.6 g/dl (6.3-8.2); Triglycerides 99 mg/dl (30-150)
[2025-09-02 14:04] LABS: HDL Cholesterol 67 mg/dl (40-60)
[2025-09-02 14:34] LABS: Thyroid Stimulating Hormone 1.51 uIU/mL (0.465-4.68)
[2025-09-02 19:10] LABS: Free T4 (Free Thyroxine) 1.04 ng/dl (0.78-2.19)
== END 2025-09-02 23:59 | disposition home or self-care (01) ==
LOC: LAB 12:52
PROVIDERS: PCP Internal Medicine; Visit Provider Internal Medicine
DX: C61 Malignant neoplasm of prostate (principal)
CPT/HCPCS: 80053; 80061; 84439; 84443; 85025; G0103